=== PATIENT | female | born 1950 | race Caucasian/White ===

== ENCOUNTER 2024-12-23 11:00 | Outpatient (REF) | payer MEDICARE, SELFPAY ==
--- NOTE | ~2024-12-23 | XR_ITS ---
EXAMINATION: XR KNEE 3 VIEWS RIGHT HISTORY: M17.11 - Unilateral primary osteoarthritis, right knee COMPARISON: Correlation is made with a standing AP view of the right knee performed earlier in the day. FINDINGS: Lateral and sunrise patellar views of the right knee are submitted. Osseous mineralization is normal. There is no fracture or dislocation. There is moderate to severe narrowing of the medial compartment and mild to moderate narrowing of the patellofemoral compartment. The soft tissues are unremarkable. There is no joint effusion.. XR/XR knee RT 3V IMPRESSION: Osteoarthritis of the right knee as described. Electronically signed by: Yevgeniy Ge MD 01/03/2025 08:10 AM EDT
--- NOTE | ~2024-12-23 | XR_ITS ---
EXAMINATION: XR KNEE, LEFT CLINICAL INFORMATION: M25.562 - Pain in left knee COMPARISON: None available. TECHNIQUE: Three views of the left knee. FINDINGS: Joint space narrowing involving the medial compartments of both knees with associated sclerosis and the articular surface of the medial femoral condyle and medial tibial plateau. Marginal osteophyte formation and medial femoral condyle both kidneys. There is a suprapatellar bursa joint effusion, moderate volume on the left knee. No acute cortical disruption or malalignment. No lytic or blastic lesions. XR/XR knee LT 3V IMPRESSION: Moderate to severe medial compartment osteoarthrosis, both knees. Electronically signed by: Arie Ruiz MD 01/03/2025 07:55 AM EDT
== END 2024-12-23 11:01 | disposition home or self-care (01) ==
LOC: HO.HOSX 11:00
PROVIDERS: Visit Provider Physician Assistant
DX: M17.0 Bilateral primary osteoarthritis of knee (principal); M25.562 Pain in left knee; M25.561 Pain in right knee
CPT/HCPCS: 73562; 99202

== ENCOUNTER 2024-12-23 12:46 | Outpatient (AMB) | payer MEDICARE, SELFPAY ==
--- NOTE | 2024-12-23 12:54 | MHC.OFFVIS ---
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 Patient was seen by her PCP and had followed up with Dr Ludwig where she was receiving bilateral knee injections, last injections on 10/15/24. She was referred to [facility] to discuss surgical options. Stating injections no longer provide her with relief. Patient reports constant discomfort that gets worse with walking and stair use. She minimizes stair use due to severe pain. Her pain is located at the medial aspect of knee and she feels clicking and clanking in her knee. Her knees frequently give out, however she denies fall. States lately her left knee has been the worse. She has tried and failed knee braces. 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 She has been experiencing pain for several years, history of knee injections . They were helpful up until recently. Last inj 10/15/24 without relief. She states she is limited with daily activities. She cannot tolerate stairs. Daily chores such as grocery shopping is difficulty. She has two stairs up into the house which are difficult to manage. She has given up yoga and social activities due to her pain. [facility] Surgical History (Updated 12/23/24 @ 13:18 by Sanjana Scott PA-C) Status post ORIF of fracture of ankle Social History (Updated 12/23/24 @ 13:05 by Tran Yu [facility]) Patient Tobacco Use Status: Never used Tobacco Current occupational status: retired Review of Systems Const All systems reviewed & are unremarkable except as noted in HPI and below Physical Exam Vital Signs: BMI result Body Mass Index 30.9 Const General: cooperative and no acute distress Orientation/consciousness: patient oriented x3 Resp Effort & Inspection: normal respiratory effort and able to speak in complete sentences Cardio Peripheral pulses: Peripheral pulses 2+ throughout Neuro General: patient oriented x3 Extrem Other: Bilateral knees are normal to inspection. No joint effusion present. Medial joint line tenderness left greater than right. Range of motion fall with crepitus. Calf supple nontender neurovascularly intact. Results Reviewed Results Reviewed: X-rays of both knees obtained the office today and reviewed by me show medial compartment arthritis with patellofemoral arthritis Assessment & Plan Assessment & Plan (1) Osteoarthritis of knees, bilateral: Code(s): M17.0 - Bilateral primary osteoarthritis of knee Category: Medical Plan We had a lengthy discussion about the extent of his OA and options available which include surgical intervention. She is interested in pursuing Total knee arthroplasty to improve her functional capacity and daily activities. I explained to her the procedure in detail, the hospital stay and details about post op rehab and precautions. She does understand all this and would like to move forward. I did put her in contact with our Nurse Navigator, Demi who will set her up with pre op planning and book accordingly. All questions were answered. Orders: Orders XR knee RT 3V Today M17.11 - Unilateral primary osteoarthritis, right knee XR knee LT 3V Today M25.562 - Pain in left knee PT Evaluation and Treatment Today M17.0 - Bilateral primary osteoarthritis of knee Coding Level of Care Code New Pt Level 4 (00159) Complex EM visit Add On G2211 Diagnoses Osteoarthritis of knees, bilateral M17.0
[2024-12-23 13:10] VITALS: BMI 30.9
== END 2024-12-23 13:31 | disposition home or self-care (01) ==
LOC: HO.HOS 12:47
PROVIDERS: Visit Provider Physician Assistant
DX: M17.0 Bilateral primary osteoarthritis of knee (principal)
CPT/HCPCS: 99204; G2211

== ENCOUNTER → 2024-12-23 12:51 | Outpatient (BNV) | payer MEDICARE, SELFPAY | PROVIDERS: Visit Provider Radiology Diagnostic Radiology | DX: M17.0 Bilateral primary osteoarthritis of knee (principal) | CPT/HCPCS: 73562 ==

== ENCOUNTER 2025-01-16 09:19 | Outpatient (AMB) | payer MEDICARE, SELFPAY ==
[2025-01-16 09:22] VITALS: BMI 30.9
--- NOTE | 2025-01-16 09:22 | A.OFFVIS_ITS ---
Vital Signs 01/16/25 09:22 Height 4 ft 11 in Weight 153 lb BMI 30.9 Intake Visit Reasons: OV- LT knee Discuss TKA Intake Note: Manisha is a 74 year old female who presents today to discuss moving forward with a Left TKA. Patient was last seen with Sanjana Scott where she reported history of cortisone injections with minimal relief. Prehab Physical therapy was ordered Allergies No Known Allergies Allergy (Verified 01/16/25 09:25) HPI HPI OV- LT knee Discuss TKA: Details: This is a 74-year-old woman who comes in today to discuss bilateral knee osteoarthritis. She has had multiple injections and tried physical therapy and has been having pain for years but has gotten to the point where she can no longer walk more than 10 minutes without severe discomfort. She can barely walk up and down stairs. She has active and healthy. She has had benefit from injections but this has not been so more recently with injections being minimally helpful at best. She feels like the quality of her life is diminished. She can not workout. She can not walk comfortably. She is at her wits end does not know what to do. [facility] Surgical History Status post ORIF of fracture of ankle Social History Patient Tobacco Use Status: Never used Tobacco Current occupational status: retired Physical Exam Vital Signs: BMI result Body Mass Index 30.9 Extrem Other: 2+ dorsalis pedis pulse bilaterally with skin clean dry and intact. She has no effusion. She is 0-125 degrees bilaterally with retropatellar tenderness to palpation as well as sharp medial tenderness to palpation bilaterally. Results Reviewed Results Reviewed: I personally reviewed relevant radiographs. Moderate to severe bilateral medial and anterior compartment osteoarthritis. Assessment & Plan Assessment & Plan (1) Osteoarthritis of knees, bilateral: Code(s): M17.0 - Bilateral primary osteoarthritis of knee Category: Medical Plan 74-year-old woman with bilateral knee osteoarthritis. She has tried injections, NSAIDs, activity modification and has not had any improvement. In fact she feels her knees have gotten worse over the last several years. She is a 74 and would like to continue to be able to ambulate comfortably without pain. I recommend knee replacement. The wound discussion with her regarding risks, benefits and alternatives. We discussed the risk of infection, stiffness, blood clots, fracture, aseptic loosening as well as medical complications associated with surgery. I will introduce her to our nurse navigator and we will proceed forward accordingly. Coding Level of Care Code Est Pt Level 4 (94457) Diagnoses Osteoarthritis of knees, bilateral M17.0
== END 2025-01-16 10:00 | disposition home or self-care (01) ==
LOC: HO.HOS 09:19
PROVIDERS: Visit Provider Orthopaedic Surgery
DX: M17.0 Bilateral primary osteoarthritis of knee (principal)
CPT/HCPCS: 99214

== ENCOUNTER → 2025-01-16 09:19 | Outpatient (BNVA) | payer MEDICARE, SELFPAY | PROVIDERS: Visit Provider Orthopaedic Surgery | DX: M17.0 Bilateral primary osteoarthritis of knee (principal) | CPT/HCPCS: 99212 ==

== ENCOUNTER 2025-02-05 08:57 | Outpatient (RCR) | payer MEDICARE, SELFPAY ==
--- NOTE | 2025-01-13 12:04 | MHC.PT.EP ---
[facility] [place] Office [place] Office [place] Office [address] [phone] F: [phone] F: [phone] F: [phone] F: [phone] Physical Therapy Plan of Care Date of Evaluation: 01/13/25 Date of Surgery: Diagnosis: CHEPE OA OF KNEES-> PREHAB Lt TKA Assessment: 74 YO FEMALE REF TO PT FOR Lt TKA PRE-HAB- SHE HAS AN APPT THIS WEEK W DR REED TO SCHED SURG- SHE IS AND RESIDES IN A 1 LEVEL HOME W HER DOG. CURRENTLY, HER Lt KNEE HAS GREATER PAIN AND LIMITATION VS Rt- SHE STATED SHE HAS DECR RENETTA TO Wt BEARING/ INCR WALKING/ STAIR NAVIGATION- SHE HAS ROM AND STRENGTH DEFICITS IN HER Lt > Rt KNEE/ LE. THE Pt IS MOTIVATED FOR PT AND FOR HER POTENTIAL TKA SURGERY. WE DISCUSSED THE PT POC FOR PREHAB AND THEN Pt IS EAGER TO PROCEED. Frequency and Duration: The patient will be seen 2 x WK x 4 WKS Short Term Goals: INITIATE HEP FOR PREHAB TKA POST-OP COURSE ED AND INCR ACTIV OF QUAD AND GLUTE MM ED AND Pt DEMON APPROP TECHN W ASST DEVICES (W/WALKER, CANE..) Half-Way Goals: Pt INDEP W HEP-> IMPR QUAD MM ACTIV Pt DEMON IMPROVED, MORE EFFICIENT GAIT MECH AND STAIR NAVIGATION IMPROVED TUG, AT EVAL 13 SECONDS IMPROVED LEFI (AT EVAL 17/80) Treatment Plan: Modalities to reduce pain, spasms and effusion. Manual therapy to restore motion and function. Therapeutic exercise to improve strength and flexibility. Neuromuscular re-education for posture and balance. Therapeutic activities to return to functional activities of daily living. Electronically signed by: SY JACOBS,PT Please sign and return to therapist. Thank you for your referral.
--- NOTE | 2025-02-05 10:16 | MHC.PT.DC ---
[facility] [place] Office [place] Office [place] Office [address] Thomas Claudio [address] [phone] F: [phone] F: [phone] F: [phone] F: [phone] Physical Therapy Discharge Report Diagnosis: CHEPE OA OF KNEES-> PREHAB Lt TKA Date of Surgery: Date of Evaluation: 01/13/25 Date of Discharge: 02/05/25 Treatments to Date: 7 Cancellations to Date: 1 No Shows to Date: 0 Discharge Status: Achieved Goals Improved Function Independent with HEP Discharge Summary: NATALIE HAS PROGRESSED NICELY IN PREHAB PT, SHE IS SCHED FOR Lt TKA IN MAY 2025 AND HAS GOOD TECHN W ASST DEVICES AND PROTOCOL EXER. HER KNEE Jt PAIN HAS DECR, IMPROVED SOFT TISSUE FLEXIBILTY/ KNEE AROM , AND IMPROVED FUNCT STRENGTH. SHE IS MOTIVATED W HER HEP AND HER UPCOMING Lt TKA PROCEDURE. SHE HAS MET HER PT GOALS AT THIS TIME- HER LEFI AT D/C IS (AT EVAL, ) Electronically signed by: SY JACOBS,PT Please sign and return to therapist. Thank you for your referral.
== END 2025-02-05 10:17 | disposition home or self-care (01) ==
LOC: HO.PT 08:57
PROVIDERS: PCP Nurse Practitioner Family; Visit Provider Physician Assistant
DX: M17.0 Bilateral primary osteoarthritis of knee (principal)
CPT/HCPCS: 97110; 97162; 97530

== ENCOUNTER 2025-05-01 09:57 | Outpatient (AMB) | payer MEDICARE, SELFPAY ==
--- NOTE | 2025-04-29 21:13 | MHC.OFFVIS ---
Vital Signs 05/01/25 10:14 Height 4 ft 11 in Weight 153 lb BMI 30.9 Intake Visit Reasons: Pre-Op: L TKA w/NE 05/06/25 Intake Note: Manisha is a 74 year old female who presents today for a preoperative visit of a scheduled left TKA, DOS: 05/06/[address] Thacker. Pain management agreement reviewed and signed. Allergies No Known Allergies Allergy (Verified 05/01/25 10:14) Medication List - Last Reconciled 05/01/25 by Sanjana Scott PA-C acetaminophen ER 650 mg PO Q12H PRN atorvastatin 10 mg PO QAM fluoxetine 20 mg PO QAM [Folding Front Wheeled walker Duration: 99 days] [Folding Front Wheeled walker Duration: 99 days] levothyroxine (Synthroid) 112 mcg PO QAM lisinopril-hydrochlorothiazide 20-12.5 mg 1 tab PO QAM metformin ER 500 mg PO BID HPI Comments Details: Ms Coyle presents to the office today for Orthopedic Pre op clearance. She is scheduled for Left total knee arthroplasty with Dr Thacker on 05/06/25. She has been experiencing bilateral knee pain for several years, left being the most symptomatic. She has trialed steroid injections, her last injection being 10/15/24 without relief. She states she is limited with daily activities. She cannot tolerate stairs. Daily chores such as grocery shopping is difficult. She can hardly walk more than 10 minutes at a time. She has two stairs up into the house which are difficult to manage. She has given up yoga and social activities due to her pain. Imaging studies including bilateral knees has demonstrated severe bilat knee oa. Patient states she lives at home in a 1 level home with a few steps to enter. She states she does not have a support system at home such as family or friends who can help her once she is discharged from the hospital. Prior Medical clearances: -PCP: Past medical history of diabetes she takes metformin 500 mg twice a day. Hypertension for which she takes lisinopril-hydrochlorothiazide daily. Atorvastatin 10 mg q.h.s. for cholesterol. Due to some resting tachycardia at her preop appointment she was directed to use a Holter monitor. Based on these results there were no abnormal findings. She was advised to limit her caffeine intake. She was cleared to proceed with arthroplasty. No history of cardiopulmonary or vascular comorbidities. [facility] Medical History (Updated 04/08/25 @ 10:21 by Chica Friedman RN) Arthritis Sinus tachycardia Peripheral neuropathy Osteopenia Depression Diabetes Hypothyroid HTN (hypertension) Surgical History (Updated 04/08/25 @ 10:21 by Chica Friedman RN) Hx of tonsillectomy H/O colonoscopy Hx of appendectomy Status post ORIF of fracture of ankle Social History Are you a primary before and after school daycare worker to a significant other at home: No Do you presently have visiting nurse or other home services: No Patient Tobacco Use Status: Never used Tobacco Current occupational status: retired Review of Systems Const All systems reviewed & are unremarkable except as noted in HPI and below Physical Exam Vital Signs: BMI result Body Mass Index 30.9 Const General: cooperative, healthy appearing, comfortable, no acute distress, well developed and alert Orientation/consciousness: patient oriented x3 HEENT Head: Yes normal to inspection, Yes normocephalic and Yes atraumatic Eyes General: appearance normal, both eyes and all related structures Neck Neck: Yes normal visual inspection and Yes no lymphadenopathy Resp Effort & Inspection: normal respiratory effort and able to speak in complete sentences Cardio Rate: regular rate Peripheral pulses: Peripheral pulses 2+ throughout GI Inspection: Yes normal to inspection Palpation (GI): Soft to palpation Skin General skin exam: no rashes or lesions noted Neuro General: patient oriented x3 Extrem Other: Left knee skin intact no open wounds or abrasions. She has no erythema or effusion. ROM 0-125. TTP medially. No evidence of venous stasis . NVI. Psych Appearance: grossly normal Mental Status: mental status grossly normal Assessment & Plan Assessment & Plan (1) Osteoarthritis of left knee: Code(s): M17.12 - Unilateral primary osteoarthritis, left knee Category: Medical Plan: Ms Serra has exhausted all conservative measures consisting of lifestyle modifications, physical therapy, analgesics, corticosteroid injections and use of assisted devices and continues to have significant limitations in daily activities along with decreased quality of life. Given the patient's desire to improve their quality of life and return to activities such as yoga, surgical intervention consisting of joint replacement surgery is recommended at this time.? We discussed the procedure in detail today; which includes pre op preparation with labs and reviewing patients medication regimen prior to surgery. Patient was given an order to obtain CBC with diff, hemoglobin A1c, BMP, type and screen prior to surgery. She was instructed to go over to the hospital to have this done. Patient was also instructed to take her levothyroxine with a small sip of water the morning of surgery. She will hold her metformin and lisinopril and atorvastatin. She can also take her fluoxetine with a small sip of water morning of surgery. I discussed at length the post op course which includes physical therapy services in the hospital along with the discharge routine and the patients plan upon discharge. The patient does express interest in discharging to a short-term rehab as she lives alone and does not feel safe going home right after surgery. I explained to the patient, once they are DC home, they will receive VNA services which will include PT 2-3x per week. We also discussed their choice for outpatient PT once they are discharged from home PT. Patient would like to attend [facility] core physical therapy once she is discharged from home physical therapy services. I did place an order for this to begin after her 1st postop appointment on 05/22/2025. She was given their contact information to make an appointment. Post op DVT ppx was also discussed and the considering the patient does not have a history of DVT/PE or cancer or history of smoking she can take aspirin 325 mg p.o. b.i.d. for DVT prophylaxis postoperatively. I reviewed with the patient their post op pain medication regimen along with the detailed wean program. The patient did express understanding of this and agreed to the narcotic policy. Lastly, I discussed with the patient the risks to the procedure. Risks including but not limited to infection, injury to surrounding nerves, tissue , bone, small and large vessels, stiffness, aseptic loosening, fracture, dislocation, amputation, DVT/PE along with intraoperative complications including but not limited to . The patient does express understanding, all questions were answered and the patient would like to proceed? with Left total knee arthroplasty with Dr. Thacker. Consents were signed and dated while in the office today.? Orders: Orders Basic Metabolic Panel 05/01/25 Z01.818 - Encounter for other preprocedural examination Hemoglobin A1c 05/01/25 M17.12 - Unilateral primary osteoarthritis, left knee, Z01.818 - Encounter for other preprocedural examination Type and Screen 05/01/25 Z01.818 - Encounter for other preprocedural examination Complete Blood Count Auto Diff 05/01/25 Z01.818 - Encounter for other preprocedural examination PT Evaluation and Treatment 05/01/25 Z96.652 - Presence of left artificial knee joint Coding Level of Care Code Est Pt Level 4 (76007) Complex EM visit Add On G2211 Diagnoses Osteoarthritis of left knee M17.12
[2025-05-01 10:14] VITALS: BMI 30.9
--- OUTSIDE RECORDS SUMMARY | 2025-05-01 10:33 | XMS_ITS | Encounter Summary ---
Author Organization [facility] Address [address] [place] [id number] Phone Care Team Providers Care Block Sorter Name Role Phone Ramon Tyler MD Primary Care Provider [phone] Encounter Details Date Type Department Care Team (Late st Contact Info) Description 06/02/2020 Procedure [facility], [facility] [address] [place] [address] Social History Tobacco Use Types Packs/Day Years Used Date Smoking Tobacco: Never Assessed Comments No Sex and Gender Information Value Date Recorded Sex Assigned at Not on file Legal Sex Female 10:05 PM EDT Gender Identity Not on file Sexual Orientation Not on file documented as of this encounter Plan of Treatment Not on file documented as of this encounter Visit Diagnoses Not on filedocumented in this encounter Care Teams Block Sorter Relationship Specialty Start Date End Date Ramon Tyler MD [email or web address] PCP - General Internal Medicine 01/05/18 documented as of this encounter Additional Source Comments The information contained in this document represents components of the legal health record. It is not the complete legal health record.[facility]
== END 2025-05-01 10:53 | disposition home or self-care (01) ==
LOC: HO.HOS 09:57
PROVIDERS: Visit Provider Physician Assistant
DX: M17.12 Unilateral primary osteoarthritis, left knee (principal)
CPT/HCPCS: 99024

== ENCOUNTER → 2025-05-01 09:57 | Outpatient (BNVA) | payer MEDICARE, SELFPAY | PROVIDERS: Visit Provider Physician Assistant | DX: Z01.818 Encounter for other preprocedural examination (principal); M17.12 Unilateral primary osteoarthritis, left knee | CPT/HCPCS: 99212 ==

== ENCOUNTER 2025-05-06 06:55 | Day surgery (SDC) | payer MEDICARE, SELFPAY ==
[2025-04-08 10:28] VITALS: BP 122/81; PULSE 101; RESP 20; O2SAT 97; BMI 29.3
--- NOTE | 2025-04-08 10:43 | HO.ANESPROP2 ---
Documented by User: Radha Pink NP 05/05/25 08:47 HPI - Anesthesia Eval Consult details Narrative: 74yo F for Left Knee Replacement Total, 05/06/25 Medically optimized per PCP No recent illness No CP/SOB with very limited activity r/t knee pain DM: Metformin only, FBS 112-130, A1C 6.7 Sinus Tach: Holter done - SR @ 75-119bpm PMFSH Active Problems Active Problems: All Active Problems Osteoarthritis of left knee (Acute) Osteoarthritis of knees, bilateral (Acute) Past Medical History Medical History Arthritis Sinus tachycardia Peripheral neuropathy Osteopenia Depression Diabetes Hypothyroid HTN (hypertension) Family History Family history of problems with anesthesia: No Surgical History Surgical History Hx of tonsillectomy H/O colonoscopy Hx of appendectomy Status post ORIF of fracture of ankle History of Problems with Anesthesia: No Social History Social History Are you a primary palliative care nurse to a significant other at home: No Do you presently have visiting nurse or other home services: No Patient Tobacco Use Status: Never used Tobacco Use of substances other than those prescribed or required for medical reasons: No Have you been hit, kicked, punched, or otherwise hurt by someone within the past year? If so, by whom?: No Spiritual Healthcare Practices: no Sikh Healthcare Practices: no Cultural Healthcare Practices: no Are you DNR?: Yes Advance Directives Information Provided: Yes Advance Directives on File: No Patient : No (n/a) FDLMP: n/a Current occupational status: [employer] Allergies Allergy/AdvReac Type Severity Reaction Status Date / Time No Known Allergies Allergy Verified 05/01/25 10:14 Home Medications ?Medication ?Instructions ?Recorded ?Confirmed ?Last Taken ?Type atorvastatin 10 mg tablet 10 mg PO QAM 12/23/24 05/01/25 Unknown History fluoxetine 20 mg capsule 20 mg PO QAM 12/23/24 05/01/25 Unknown History levothyroxine 112 mcg tablet 112 mcg PO QAM 12/23/24 05/01/25 Unknown History (Synthroid) lisinopril 20 1 tab PO QAM 12/23/24 05/06/25 05/06/25 07:00 History mg-hydrochlorothiazide 12.5 mg tablet metformin 500 mg tablet,extended 500 mg PO BID 12/23/24 05/01/25 Unknown History release 24 hr acetaminophen 650 mg 650 mg PO Q12H PRN Pain 04/08/25 05/01/25 Unknown History tablet,extended release Exam Height,Weight and Vital Signs: Height 4 ft 11 in Weight 65.771 kg Last Vital Signs Pulse 101 H 04/08/25 10:28 Resp 20 04/08/25 10:28 BP 122/81 04/08/25 10:28 Pulse Ox 97 04/08/25 10:28 O2 Del Method Room Air 04/08/25 10:28 Pertinent Lab Results Pertinent Lab Results: Lab Results 04/08/25 05/01/25 05/01/25 Range/Units 10:40 10:50 10:59 WBC 9.3 (4.8-10.8) X10*3/uL RBC 4.88 (4.20-5.50) X10*6/uL Hgb 13.3 (12.0-16.0) g/dl Hct 39.6 (37.0-47.0) % MCV 81.1 (80.0-98.0) fL MCH 27.3 (27.0-33.0) pg MCHC 33.6 (31.0-35.0) g/dl RDW 13.0 (11.0-16.0) % Plt Count 377 (160-400) X10*3/uL MPV 9.7 (9.4-12.3) fL Immature Gran % (Auto) 0.8 H (0.0-0.4) % Neut % (Auto) 62.6 (45-73) % Lymph % (Auto) 23.0 (20-40) % [place] % (Auto) 10.2 (2-11) % Eos % (Auto) 2.9 (0-4) % Baso % (Auto) 0.5 (0-2) % Lymph # (Auto) 2.1 (1.2-4.9) X10*3/uL [place] # (Auto) 0.9 (0.1-1.2) X10*3/uL Eos # (Auto) 0.3 (0.0-0.4) X10*3/uL Baso # (Auto) 0.1 (0.0-0.2) X10*3/uL Abs Immat Gran (auto) 0.07 H (0.00-0.03) X10*3/uL Absolute Neuts (auto) 5.8 (2.0-8.3) x10*3/uL Absolute Nucleated RBC 0.000 (0.0-0.012) X10*3/uL Nucleated RBC % (auto) 0.0 (0.0-0.2) /100WBC Sodium 135 (135-145) mmol/L Potassium 4.0 (3.3-5.1) mmol/L Chloride 101 (96-108) mmol/L Carbon Dioxide 25 (22-29) mmol/L Anion Gap 13 (12-20) BUN 15 (9-16) mg/dL Creatinine 0.89 (0.5-1.4) mg/dL Estim Creat Clear Calc 44.3 Estimated GFR > 60 Random Glucose 232 H (60-115) mg/dL Estimat Average Glucose 134 mg/dL Hemoglobin A1c % 6.3 H (<6.0) % Calcium 9.5 (8.4-10.2) mg/dL Nasal Screen MRSA (PCR) NEGATIVE (Negative) Nasal S. aureus Screen NEGATIVE (Negative) Nasal MRSA/S.aureus Interp SEE NOTE Blood Type B Negative Antibody Screen NEGATIVE Narrative Narrative: EKG 03/2025 NSR @ 99 Holter 03/2025 SR with rates from 75-119bpm No sustained arrhythmias detected 1% PAC burden. <1% PVC burden Airway Mallampati Class: II TM Dist: >3cm Neck ROM: Full Loose/Missing/Broken Teeth: Yes (molars extracted, capped molar) Heart: RRR Lungs: CTAB Assessment and Plan Assessment Anesthesia Assessment: Anesthesia Plan Discussed and PAT Visit Final Anesthetic Review Family History of Problems with Anesthesia: No History of Problems with Anesthesia: No Documented by User: Leni Webb MD 05/06/25 09:15 [facility] Past Medical History Medical History Arthritis Sinus tachycardia Peripheral neuropathy Osteopenia Depression Diabetes Hypothyroid HTN (hypertension) Surgical History Surgical History Hx of tonsillectomy H/O colonoscopy Hx of appendectomy Status post ORIF of fracture of ankle Social History Social History Are you a primary palliative care nurse to a significant other at home: No Do you presently have visiting nurse or other home services: No Patient Tobacco Use Status: Never used Tobacco Use of substances other than those prescribed or required for medical reasons: No Have you been hit, kicked, punched, or otherwise hurt by someone within the past year? If so, by whom?: No Spiritual Healthcare Practices: no Sikh Healthcare Practices: no Cultural Healthcare Practices: no Are you DNR?: Yes Advance Directives Information Provided: Yes Advance Directives on File: No Patient : No (n/a) FDLMP: n/a Current occupational status: retired [employer] Allergies Allergy/AdvReac Type Severity Reaction Status Date / Time No Known Allergies Allergy Verified 05/01/25 10:14 Home Medications ?Medication ?Instructions ?Recorded ?Confirmed ?Last Taken ?Type atorvastatin 10 mg tablet 10 mg PO QAM 12/23/24 05/01/25 Unknown History fluoxetine 20 mg capsule 20 mg PO QAM 12/23/24 05/01/25 Unknown History levothyroxine 112 mcg tablet 112 mcg PO QAM 12/23/24 05/01/25 Unknown History (Synthroid) lisinopril 20 1 tab PO QAM 12/23/24 05/06/25 05/06/25 07:00 History mg-hydrochlorothiazide 12.5 mg tablet metformin 500 mg tablet,extended 500 mg PO BID 12/23/24 05/01/25 Unknown History release 24 hr acetaminophen 650 mg 650 mg PO Q12H PRN Pain 04/08/25 05/01/25 Unknown History tablet,extended release Assessment and Plan Final Anesthetic Review NPO: Yes ASA Class: II Final Preanesthetic Review: No Changes in Pt Med Stat, Meds/Allgs Chart Reviewed, Consent Obtained/Reviewed and Anes Risks/Benef Reviewed Patient Risk: Low Procedure Risk: Intermediate Anesthetic Plan Anesthetic Plan: Spinal, Neuraxial Block:, Regional Block and Agree w/ Assess. and Plan Disposition: Standard PACU
[2025-04-08 12:52] LABS: MRSA Nasal PCR NEGATIVE (Negative); SA Nasal PCR NEGATIVE (Negative)
[2025-05-01 11:01] LABS: MANUAL DIFF FLAG NO
[2025-05-01 11:31] LABS: Hematocrit 39.6 % (37.0-47.0); Hemoglobin 13.3 g/dl (12.0-16.0); Imm Gran Abs Auto 0.07 X10*3/uL (0.00-0.03); Imm Gran Pct Auto 0.8 % (0.0-0.4); Lymphocytes Absolute Auto 2.1 X10*3/uL (1.2-4.9); Mean Corpuscular HGB Conc 33.6 g/dl (31.0-35.0); Mean Corpuscular Hemoglobin 27.3 pg (27.0-33.0); Mean Corpuscular Volume 81.1 fL (80.0-98.0); NRBC Abs Auto 0.000 X10*3/uL (0.0-0.012); NRBC Pct Auto 0.0 /100WBC (0.0-0.2); Platelet Count 377 X10*3/uL (160-400); Red Blood Count 4.88 X10*6/uL (4.20-5.50); White Blood Count 9.3 X10*3/uL (4.8-10.8)
[2025-05-01 11:38] LABS: Hemoglobin A1C 159.5926 umol/L; Total Hemoglobin (HGBA1C) 3507.2336 umol/L
[2025-05-01 12:12] LABS: Anion Gap 13 (12-20); Blood Urea Nitrogen 15 mg/dL (9-16); Calcium 9.5 mg/dL (8.4-10.2); Carbon Dioxide 25 mmol/L (22-29); Chloride 101 mmol/L (96-108); Creatinine Clr Calc Pharmacy 44.3; Estimated Glomerular Filt Rate > 60; Potassium 4.0 mmol/L (3.3-5.1); Sodium 135 mmol/L (135-145)
[2025-05-06] VITALS (11 sets, daily range): BP systolic 95–187; BP diastolic 53–89; PULSE 70–97; RESP 12–18; TEMP 36–37.1; O2SAT 93–100; BMI 29.3
--- NOTE | ~2025-05-06 | XR_ITS ---
EXAMINATION: XR KNEE 1-2 VIEWS LEFT HISTORY: LT TKA COMPARISON: Comparison is made with the prior examination dated 12/23/2024. FINDINGS: AP and lateral portable views of the left knee are submitted from the operating room at 12:37 PM. The patient is status post total knee arthroplasty. The orthopedic elements are in anatomic alignment. Postoperative changes are noted in the soft tissues. XR/XR knee LT 2V IMPRESSION: Status post left total knee arthroplasty. Electronically signed by: Yevgeniy Ge MD 05/06/2025 12:53 PM EDT
[2025-05-06 07:54] LABS: Hematocrit 40.6 % (37.0-47.0); Hemoglobin 13.8 g/dl (12.0-16.0)
[2025-05-06] MEDS: Lactated Ringers 1,000 ML 100 ML IVCONT ×2 (08:15→14:27)
[2025-05-06 08:17] LABS: Glucose, Whole Blood 128 mg/dL (60-115)
--- NOTE | 2025-05-06 10:31 | MHC.SHP ---
Pre-Procedural Eval Section A - 24 Hr Update-Section A only Date of Service: 05/06/25 The patient is an INPATIENT: No Changes since office visit: No Cold of Flu in the past 2 weeks, No New Medical Problems, No Changes in Medication and No Patient answered all questions The patient has been examined within 24 hours of the surgical procedure. The History & Physical has been completed within 30 days and I have reviewed it.: Yes Section B - Complete if H&P > 30 days Chief Complaint: Bilateral primary osteoarthritis of knee Allergies: Allergies Allergy/AdvReac Type Severity Reaction Status Date / Time No Known Allergies Allergy Verified 05/01/25 10:14 Plan I have reviewed the history and physical and performed a pertinent physical examination on my patient. No changes have occurred unless specified. Time Spent With Patient Time: Total time managing care of this patient today ____ minutes.
--- NOTE | 2025-05-06 12:11 | PM.OP ---
Brief Operative Note Date of Service: 05/06/25 Pre-op diagnosis: left knee OA Post-op diagnosis: same Procedure: Left TKA Implants: [employer] 11/03/09PS/27s cemented PS Surgeon: Virgilio Thacker MD Anesthesia: GETA and regional Was an Software Application Tester used for this Procedure?: Yes Software Application Tester: Sanjana Scott Estimated blood loss (mL): 25 Tourniquet time (min): 70 IV fluids (mL): 800 Pathology: other Condition: stable Disposition: PACU
--- NOTE | 2025-05-06 14:20 | HO.PM.IMCN ---
History of Present Illness Data of Consult Service Date: 05/06/25 Primary Care Provider: SANGEETA Wilhelm HPI Reason for consult: Medical management 74-year-old female with a past medical history of hypertension, depression, type 2 diabetes, hypothyroidism, and hyperlipidemia, who underwent a left total knee today with Dr. Thacker. Postoperatively she is doing well, she denies any shortness of breath, dizziness, lightheadedness, nausea or vomiting. She is eating a little, has not voided yet. Was bladder scanned with no residual. She denies any pain at present. Review of Systems Review of Systems: Denies any shortness of breath, chest pain, dizziness, lightheadedness, abdominal pain or discomfort, nausea vomiting or diarrhea [facility] Medical History (Updated 05/06/25 @ 15:02 by Meliza Baumann DNP) Arthritis Sinus tachycardia Peripheral neuropathy Osteopenia Depression Diabetes Hypothyroid HTN (hypertension) Surgical History Hx of tonsillectomy H/O colonoscopy Hx of appendectomy Status post ORIF of fracture of ankle Social History Are you a primary director of critical care to a significant other at home: No Do you presently have visiting nurse or other home services: No Patient Tobacco Use Status: Never used Tobacco Use of substances other than those prescribed or required for medical reasons: No Have you been hit, kicked, punched, or otherwise hurt by someone within the past year? If so, by whom?: No Spiritual Healthcare Practices: no Zoroastrian Healthcare Practices: no Cultural Healthcare Practices: no Are you DNR?: Yes Advance Directives Information Provided: Yes Advance Directives on File: No Patient : No (n/a) FDLMP: n/a Current occupational status: retired Meds Allergies Allergy/AdvReac Type Severity Reaction Status Date / Time No Known Allergies Allergy Verified 05/01/25 10:14 Active Medications: Current Medications Acetaminophen (Acetaminophen 325 Mg Tablet) 650 mg PO Q6H PRN PRN Reason: Pain, Mild 1-3,fever,headache Aspirin (Aspirin 325 Mg Tablet) 325 mg PO BID EVELINA Celecoxib (Celecoxib 200 Mg Capsule) 200 mg PO BID EVELINA Docusate Sodium (Docusate Sodium 100 Mg Capsule) 100 mg PO BID EVELINA Fluoxetine HCl (Fluoxetine Hcl 20 Mg Capsule) 20 mg PO QAM [facility] Hydromorphone HCl (Hydromorphone Hcl 0.5 Mg/0.5 Ml Syringe) 0.25 mg IVPUSH Q4H PRN; Protocol PRN Reason: Pain, Severe (Pain Scale 7-10) Lactated Ringer's (Lr) 1,000 mls @ 100 mls/hr IVCONT .Q10H EVELINA Stop: 05/07/25 08:00 Cefazolin Sodium/Dextrose (Ancef) 2 gm in 50 mls @ 100 mls/hr IV POSTOP ONE Stop: 05/06/25 17:29 Levothyroxine Sodium (Levothyroxine Sodium 112 Mcg Tablet) 112 mcg PO QAM [facility] Ondansetron HCl (Ondansetron Hcl 4 Mg/2 Ml Vial) 4 mg IVPUSH Q8H PRN PRN Reason: Nausea and Vomiting Oxycodone HCl (Oxycodone Hcl Immed Release 5 Mg Tablet) 5 mg PO Q4H PRN PRN Reason: Pain, Moderate(Pain Scale 4-6) Oxycodone HCl (Oxycodone Hcl Er 10 Mg Tab.Er.12h) 10 mg PO BID [facility] Sodium Chloride (0.9 % Sodium Chloride Flush 3 Ml Syringe) 3 ml IVFLUSH QSHIFT [facility] Home Medications ?Medication ?Instructions ?Recorded ?Confirmed ?Last Taken ?Type atorvastatin 10 mg tablet 10 mg PO DAILY 12/23/24 05/01/25 Unknown History fluoxetine 20 mg capsule 20 mg PO DAILY 12/23/24 05/01/25 Unknown History levothyroxine 112 mcg tablet 112 mcg PO DAILY@0600 12/23/24 05/01/25 Unknown History (Synthroid) lisinopril 20 1 tab PO DAILY 12/23/24 05/01/25 05/06/25 07:00 History mg-hydrochlorothiazide 12.5 mg tablet metformin 500 mg tablet,extended 500 mg PO BID 12/23/24 05/01/25 Unknown History release 24 hr acetaminophen 650 mg 650 mg PO Q12H PRN Pain 04/08/25 05/01/25 Unknown History tablet,extended release Physical Exam Vital Signs and Narrative: Vital Signs: Last Vital Signs Temp 97.0 F 05/06/25 14:19 Pulse 76 05/06/25 14:19 Resp 14 05/06/25 14:19 BP 141/74 H 05/06/25 14:19 Pulse Ox 97 05/06/25 14:19 O2 Del Method Room Air 05/06/25 14:19 BMI result Body Mass Index 29.3 Alert and oriented X3, able to give good history. Neuro: CN II-X11 intact, no deficits, visual acuity intact EYES: PERRLA, EOM intact ENT: Hearing intact, lips moist Cardiac: S1 S2 RRR, No ectopy Pulmonary: lungs clear to auscultation, No increased WOB. Abdominal: BS active in all 4 quadrants, no guarding or tenderness MSK: Strength 5/5 upper and lower extremities : Deferred Extremities: No edema in lower extremities, PT and DP pulses palpable +2. + DP flexion. +CMS Psych: mood stable, Quiet and cooperative. Skin: Warm and dry, Intact Results Labs 05/06/25 07:49 05/01/25 10:59 Labs: Laboratory Results - last 24 hr 05/06/25 08:13 POC Glucose 128 H Imaging Radiologist's Impressions: Impressions Knee X-Ray 05/06/25 12:40 IMPRESSION: Status post left total knee arthroplasty. Electronically signed by: Yevgeniy Ge MD 05/06/2025 12:53 PM EDT RP Assessment and Plan (1) HTN (hypertension): Status: Acute (2) Diabetes: Status: Acute Plan 74-year-old female with a past medical history of depression, hypertension, type 2 diabetes, hyperlipidemia, and hypothyroidism is admitted for an elective left total knee replacement today. Left total knee replacement Plan per Orthopedics Pain well controlled no nausea vitals were stable Prophylaxis with aspirin b.i.d. Hypertension/HLD Continue hydrochlorothiazide and lisinopril Continue atorvastatin Depression Continue fluoxetine Hypothyroidism Continue levothyroxine Type 2 diabetes Continue metformin. Lispro SS while inpatient for glucose control with meals Appears well controlled, last A1c 6.3 on 05/01/2025 Thank you for allowing me to participate in the care of this patient. Signing off at this time. Please reconsult of any acute concerns or issues arise
[2025-05-06 15:24] LABS: Glucose, Whole Blood 164 mg/dL (60-115)
[2025-05-06] MEDS: oxyCODONE HCl Immed Release 5 MG TABLET PO (15:44)
--- NOTE | 2025-05-06 17:34 | PHA.MEDREC ---
Addendum entered by Trenton Mccoy [facility] 05/06/25 17:40: Med rec reviewed Original Note: Pharmacy Consult ? Medication Reconciliation Pharmacy has completed the medication reconciliation. Spoke with pt and they confirmed her medications.
[2025-05-06 17:35] LABS: Glucose, Whole Blood 289 mg/dL (60-115)
--- NOTE | 2025-05-06 17:50 | PM.DS ---
DS: Providers Provider Date of Service: 05/06/25 <Carlos Manuel-America Scott PA-C - Last Filed: 05/06/25 17:52> Date of discharge: 05/07/25 <Sanjana Scott PA-C - Last Filed: 05/06/25 17:52> Primary care physician: SANGEETA Wilhelm <Carlos ManuelStormyAmerica Baileymarta PA-C - Last Filed: 05/06/25 17:52> Consults: 05/06/25 14:09 Consult to Hospitalist Routine Comment: Consulting Provider: [facility] Reason For Exam: medical managmenet <Carlos Manuel-America Scott PA-C - Last Filed: 05/06/25 17:52> DS: Diagnosis Discharge Diagnosis (1) HTN (hypertension): Status: Acute <Ta-America Scott PA-C - Last Filed: 05/06/25 17:52> (2) Diabetes: Status: Acute <Carlos Manuel-America Scott PA-C - Last Filed: 05/06/25 17:52> (3) Status post total knee replacement, left: Status: Acute <Carlos Manuel-America Scott PA-C - Last Filed: 05/06/25 17:52> DS: Summary Hospital Course Hospital Course: The patient underwent a successful left total knee arthroplasty on, was transferred to PACU and then to the floor to recover. During their stay, their vitals were stable, afebrile at 98.2. Labs were unremarkable, H/H 11.4/34.4. POD 1 she was started on KLN095 mg tabs po bid for DVT ppx, they also received Physical Therapy services twice a day. POD1 the patient was noted to have left foot drop. SHIRLENE wrap was removed. POD2 foot drop persists and therefore, the patient was given a blue night splint. This is to be used in bed and is not meant for ambulation. Patient should be in the night splint at all times while in bed or in a chair. Physical therapy should include gait training, ROM to tolerance and quad strength. She is WBAT with a walker. Prior to discharge, his dressing was changed, incision clean dry and intact, new Aquacel dressing applied. The Aquacel dressing should remain intact and dry at all times. Any concerns with the dressing, please contact orthopedic office. No showering. The plan is to be discharged to rehab for additional physical therapy. <Sanjana Scott PA-C - Last Filed: 05/06/25 17:52> Time Attestation Discharge Coordination Time (in mins): 30 <Ary Johnson PA-C - Last Filed: 05/08/25 13:11> Quality: Safe Use of Opioids Does Pt have an Active Cancer Diagnosis on the Problem List?: No <Ary Johnson PA-C - Last Filed: 05/08/25 13:11> Quality: Stroke Does the patient have a stroke diagnosis?: No <Ary Johnson PA-C - Last Filed: 05/08/25 13:11> Physical Exam Vital Signs: Vital Signs: Last Vital Signs Temp 96.8 F 05/06/25 15:16 Pulse 88 05/06/25 15:16 Resp 14 05/06/25 15:16 BP 187/86 H 05/06/25 15:16 Pulse Ox 96 05/06/25 15:16 O2 Del Method Room Air 05/06/25 15:16 BMI result Body Mass Index 29.3 <Sanjana Scott PA-C - Last Filed: 05/06/25 17:52> Const: General: cooperative, healthy appearing and no acute distress <Ary Johnson PA-C - Last Filed: 05/08/25 13:11> Resp: Effort & Inspection: normal respiratory effort and able to speak in complete sentences <Ary Johnson PA-C - Last Filed: 05/08/25 13:11> Cardio: Rate: regular rate <Ary Johnson PA-C - Last Filed: 05/08/25 13:11> Peripheral pulses: Peripheral pulses 2+ throughout <Ary Johnson PA-C - Last Filed: 05/08/25 13:11> GI: Palpation (GI): Soft to palpation <Ary Johnson PA-C - Last Filed: 05/08/25 13:11> Skin: Lesions: no lesions <Ary Johnson PA-C - Last Filed: 05/08/25 13:11> Rashes: no rashes <Ary Johnson PA-C - Last Filed: 05/08/25 13:11> Extrem: Other: Left foot drop present. Decreased sensation dorsal aspect of the foot. Able to plantar flex. Difficulty with dorsiflexion. Able to move all digits. Pedal pulse intact. Dressing over the left knee is c/d/i. Calf is supple and nontender. <Ary Johnson PA-C - Last Filed: 05/08/25 13:11> DS: Data Data Completed and Pending Pending studies at discharge: Pending at discharge 05/06/25 11:20 Surgical [PTH] Routine <Sanjana Scott PA-C - Last Filed: 05/06/25 17:52> Labs on day of discharge: Laboratory Results - last 24 hr 05/06/25 05/06/25 05/06/25 07:49 08:13 15:21 Hgb 13.8 Hct 40.6 POC Glucose 128 H 164 H 05/06/25 17:32 Hgb Hct POC Glucose 289 H <Sanjana Scott PA-C - Last Filed: 05/06/25 17:52> Discharge Plan Discharge Patient Disposition: Xfer Inpatient Rehab Fac <Sanjana Scott PA-C - Last Filed: 05/06/25 17:52> Referrals: [facility] [Other] - 1 Week Sanjana Scott PA-C [Physician Vehicle Delivery Worker, Orthopedics] - 1 Week Referral Note: 05/22/25 14:00 [facility] Sanjana Scott PA-C <Sanjana Scott PA-C - Last Filed: 05/06/25 17:52> Discharge Medications: New celecoxib 200 mg Capsule 200 mg PO BID 30 Days Qty: 60 0RF acetaminophen 325 mg Tablet 650 mg PO Q6H PRN (Reason: Pain, Mild 1-3,Fever,Headache) 30 Days Qty: 240 0RF aspirin 325 mg Tablet 325 mg PO BID 42 Days Qty: 84 0RF docusate sodium 100 mg Capsule 100 mg PO BID 14 Days Qty: 28 0RF oxycodone 5 mg Tablet 5 mg PO Q4H PRN (Reason: Pain, Moderate(Pain Scale 4-6)) 7 Days Qty: 42 0RF Rx Instructions: Partial Fill upon patient request. Continued (DME) Folding Front Wheeled walker See Rx Instructions .ROUTE .MEDSUPPLY Qty: 1 0RF Rx Instructions: Duration: 99 days (DME) Folding Front Wheeled walker See Rx Instructions .ROUTE .MEDSUPPLY Qty: 1 0RF Rx Instructions: Duration: 99 days levothyroxine [Synthroid] 112 mcg tablet 112 mcg PO DAILY@0600 fluoxetine 20 mg capsule 20 mg PO DAILY lisinopril-hydrochlorothiazide 20-12.5 mg tablet 1 tab PO DAILY atorvastatin 10 mg tablet 10 mg PO DAILY metformin 500 mg tablet extended release 24 hr 500 mg PO BID <Sanjana Scott PA-C - Last Filed: 05/06/25 17:52> Discharge Orders: Discharge Order (Routine); Ordered 05/08/25 Ordered By: Ary Johnson <Sanjana Scott PA-C - Last Filed: 05/06/25 17:52> Diet: Regular diet <Sanjana Scott PA-C - Last Filed: 05/06/25 17:52> Regular diet <Ary Johnson PA-C - Last Filed: 05/08/25 13:11> Activity on Discharge: Use cane or walker <Sanjana Scott PA-C - Last Filed: 05/06/25 17:52> Use cane or walker <Ary Johnson PA-C - Last Filed: 05/08/25 13:11> Activity Restrictions/Additional Instructions: Physical Therapy for Total knee arthroplasty: WBAT, gait training, ROM 0-12, quad strength Limit stair climbing No showering, no tub bath-keep dressing clean, dry and intact No driving x6 weeks Continue Aspirin twice a day x 6 weeks Follow up with [facility] in 2 weeks: <Sanjana Scott PA-C - Last Filed: 05/06/25 17:52> Print Language: Turkmen <Sanjana Scott PA-C - Last Filed: 05/06/25 17:52>
[2025-05-06 19:33] LABS: Glucose, Whole Blood 231 mg/dL (60-115)
[2025-05-06] MEDS: oxyCODONE HCl ER 10 MG TAB.ER.12H PO (20:01)
[2025-05-07] VITALS (7 sets, daily range): BP systolic 134–166; BP diastolic 66–82; PULSE 84–95; RESP 16–18; TEMP 36.1–36.7; O2SAT 94–97
[2025-05-07] MEDS: Lactated Ringers 1,000 ML 100 ML IVCONT (00:17)
[2025-05-07 06:25] LABS: MANUAL DIFF FLAG NO
[2025-05-07 06:44] LABS: Hematocrit 34.8 % (37.0-47.0); Hemoglobin 11.8 g/dl (12.0-16.0); Imm Gran Abs Auto 0.10 X10*3/uL (0.00-0.03); Imm Gran Pct Auto 0.6 % (0.0-0.4); Lymphocytes Absolute Auto 1.5 X10*3/uL (1.2-4.9); Mean Corpuscular HGB Conc 33.9 g/dl (31.0-35.0); Mean Corpuscular Hemoglobin 27.2 pg (27.0-33.0); Mean Corpuscular Volume 80.2 fL (80.0-98.0); NRBC Abs Auto 0.000 X10*3/uL (0.0-0.012); NRBC Pct Auto 0.0 /100WBC (0.0-0.2); Platelet Count 312 X10*3/uL (160-400); Red Blood Count 4.34 X10*6/uL (4.20-5.50); White Blood Count 15.6 X10*3/uL (4.8-10.8)
[2025-05-07 06:46] LABS: Anion Gap 14 (12-20); Blood Urea Nitrogen 22 mg/dL (9-16); Calcium 9.2 mg/dL (8.4-10.2); Carbon Dioxide 21 mmol/L (22-29); Chloride 100 mmol/L (96-108); Creatinine Clr Calc Pharmacy 41.1; Estimated Glomerular Filt Rate 57; Potassium 4.3 mmol/L (3.3-5.1); Sodium 131 mmol/L (135-145)
[2025-05-07 07:37] LABS: Glucose, Whole Blood 120 mg/dL (60-115)
--- NOTE | 2025-05-07 07:40 | PM.PNORT ---
Subjective Subjective Date of Service: 05/07/25 Interval history: POD1 s/p LTKA Patient is resting in bed comfortably No overnight events Pain is managed No additional complaints Physical Exam Vital Signs: Vital Signs: Last Vital Signs Temp 98.1 F 05/07/25 07:38 Pulse 89 05/07/25 07:38 Resp 18 05/07/25 07:38 BP 146/82 H 05/07/25 07:38 Pulse Ox 94 05/07/25 07:38 O2 Del Method Room Air 05/07/25 07:38 BMI result Body Mass Index 29.3 Const: General: cooperative, healthy appearing and no acute distress Resp: Effort & Inspection: normal respiratory effort and able to speak in complete sentences Cardio: Rate: regular rate Peripheral pulses: Peripheral pulses 2+ throughout GI: Palpation (GI): Soft to palpation Skin: Lesions: no lesions Rashes: no rashes Extrem: Other: left knee dressing is c/d/i. Able to dorsi/plantar flex. Calf is supple and nontender. Sensation intact. Pedal pulse intact. Procedures Date of Service Date of Service: 05/07/25 Progress Note: A&P Assessment and plan (1) Status post total knee replacement, left: Status: Acute Plan Continue pain mgmnt Begin ASA for dvt ppx begin PT for LTKA - Patient does not have help at home will likely need rehab placement Dispo planning-Pending PT eval, pain mgmnt Time Spent With Patient Time: Total time managing care of this patient today ____ minutes. Quality Stroke Does the patient have a stroke diagnosis?: No VTE Prior VTE?: No VTE Risk Level:: Medical - moderate - high VTE Device Contraindication: N/A - Device Ordered VTE Drug Contraindication: N/A - Med Ordered
--- NOTE | 2025-05-07 08:36 | HO.POSTANES ---
Post Anesthesia Evaluation Post Anesthesia Evaluation Date of Service: 05/07/25 Vital Signs: Vital Signs Temp Pulse Resp BP Pulse Ox O2 Del Method 05/07/25 07:38 98.1 F 89 18 146/82 H 94 Room Air 05/07/25 03:15 97.0 F 95 18 134/78 94 Room Air 05/06/25 23:34 97.6 F 97 18 137/73 94 Room Air Anesthesia: Spinal Mental Status: Awake Pain Control: Satisfactory Nausea/Vomiting: None Hydration: Adequate Anesthesia-Related Issues: No Anes. Related Issues
[2025-05-07] MEDS: oxyCODONE HCl ER 10 MG TAB.ER.12H PO ×2 (08:37→21:28)
[2025-05-07] MEDS: oxyCODONE HCl Immed Release 5 MG TABLET PO ×2 (08:38→12:35)
--- NOTE | 2025-05-07 10:42 | MHC.CM.PN ---
pt lives alone is extended stay will not have a qhs referrals to acute s and a vna dc plan tbd
[2025-05-07 11:28] LABS: Glucose, Whole Blood 158 mg/dL (60-115)
--- NOTE | 2025-05-07 13:22 | W.PM.OPN ---
Operative Note Operative Note Date of Service: 05/07/25 Narrative: Date of Service: 05/06/25 Pre-op diagnosis: left knee OA Post-op diagnosis: same Procedure: Left TKA Implants: Lenorah Triathlon 2/2/10PS/27s cemented PS Surgeon: Virgilio Thacker MD Anesthesia: GETA and regional Was an Senior Architectural Designer used for this Procedure?: Yes Senior Architectural Designer: Sanjana Scott Estimated blood loss (mL): 25 Tourniquet time (min): 70 IV fluids (mL): 800 Pathology: other Condition: stable Disposition: PACU Procedure in detail: The patient was brought to the operating room and prepped and draped in standard sterile fashion. A time-out was called to identify proper site proper procedure proper surgeon and IV antibiotics were administered. 1 g of IV tranexamic acid was administered. I began by making a midline incision to the retinaculum and performed a medial parapatellar arthrotomy. The patella was translated laterally and the knee was flexed up. The medial compartment was eburnated as was the trochlea. I performed a small medial peel and resected the infrapatellar fat pad. Gregg's line was then used to drill my intramedullary femoral guide and my distal femur cut of 10mm was made in 5 degrees of valgus while protecting the posterior soft tissues. I then measured a #2 femur and placed my cutting guide and made my anterior posterior and chamfer cuts protecting the soft tissues at all times. I then made my box but removing the PCL. Once I was satisfied with my cuts I turned my attention to the tibia. I removed the meniscus medially and laterally and , using an external cutting guide, in line with the tibial crest and the third ray, I made my distal tibial cut in 0 deg slope of while protecting the posterior soft tissues at all times. An extension block was used to confirm appropriate amount of bony resection. I then sized a #2 tibia and once I was satisfied that there was complete tibial coverage I placed my trial and with the trial femur in place took the knee through range of motion. I was satisfied with the extension and flexion as well as the balance at 0, 30 and 90 degrees. I then turned my attention to the patella where I removed 1 cm from the undersurface of the patella and then trialed a 27s patellar button. Again the knee was taken through range of motion I was satisfied with the tracking. I then prepared the tibia with a drill and punch. A femoral bone plug was placed and the knee was irrigated copiously. Two bags of bone cement mixed on the back table using 3rd generation cementation technique. I then cemented the patella, tibia and femur in standard fashion. Axial compression and a clamp were used while the cement dried. Once the cement was hard on the back table all excess cement was removed and I trialed different inserts until I selected a #10ps insert. The final insert was placed and local TXA was administered. The knee was then closed with a running Quill suture, a 3 0 Vicryl and liliana on the skin. Patient was then placed in sterile dressing and brought to recovery room in stable condition there were no known complications.
--- NOTE | 2025-05-07 13:49 | MHC.CM.PN ---
pt to be dcd tomorrow to [facility]
[2025-05-07 16:10] LABS: Glucose, Whole Blood 118 mg/dL (60-115)
[2025-05-07] MEDS: 0.9 % Sodium Chloride Flush 3 ML SYRINGE IVFLUSH (16:38)
[2025-05-07 20:09] LABS: Glucose, Whole Blood 129 mg/dL (60-115)
[2025-05-08 04:00] VITALS: BP 137/71; PULSE 98; RESP 16; TEMP 36.1; O2SAT 93
[2025-05-08 06:53] LABS: MANUAL DIFF FLAG NO
[2025-05-08 07:06] LABS: Hematocrit 34.4 % (37.0-47.0); Hemoglobin 11.4 g/dl (12.0-16.0); Imm Gran Abs Auto 0.08 X10*3/uL (0.00-0.03); Imm Gran Pct Auto 0.7 % (0.0-0.4); Lymphocytes Absolute Auto 2.6 X10*3/uL (1.2-4.9); Mean Corpuscular HGB Conc 33.1 g/dl (31.0-35.0); Mean Corpuscular Hemoglobin 27.1 pg (27.0-33.0); Mean Corpuscular Volume 81.7 fL (80.0-98.0); NRBC Abs Auto 0.000 X10*3/uL (0.0-0.012); NRBC Pct Auto 0.0 /100WBC (0.0-0.2); Platelet Count 298 X10*3/uL (160-400); Red Blood Count 4.21 X10*6/uL (4.20-5.50); White Blood Count 11.1 X10*3/uL (4.8-10.8)
[2025-05-08 07:22] LABS: Anion Gap 13 (12-20); Blood Urea Nitrogen 16 mg/dL (9-16); Calcium 8.9 mg/dL (8.4-10.2); Carbon Dioxide 28 mmol/L (22-29); Chloride 96 mmol/L (96-108); Creatinine Clr Calc Pharmacy 49.3; Estimated Glomerular Filt Rate > 60; Potassium 4.5 mmol/L (3.3-5.1); Sodium 132 mmol/L (135-145)
[2025-05-08 07:24] LABS: Glucose, Whole Blood 119 mg/dL (60-115)
[2025-05-08 07:38] VITALS: BP 112/58; PULSE 90; RESP 17; TEMP 36.1; O2SAT 94
--- NOTE | 2025-05-08 08:38 | PM.PNORT ---
Subjective Subjective Date of Service: 05/08/25 Interval history: POD2 s/p LTKA Patient is resting in bed comfortably Continues to report inability to flex at the ankle and decreased sensation No overnight events Pain is managed No additional complaints Physical Exam Vital Signs: Vital Signs: Last Vital Signs Temp 96.9 F 05/08/25 07:38 Pulse 90 05/08/25 07:38 Resp 17 05/08/25 07:38 BP 112/58 L 05/08/25 07:38 Pulse Ox 94 05/08/25 07:38 O2 Del Method Room Air 05/08/25 07:38 BMI result Body Mass Index 29.3 Const: General: cooperative, healthy appearing and no acute distress Resp: Effort & Inspection: normal respiratory effort and able to speak in complete sentences Cardio: Rate: regular rate Peripheral pulses: Peripheral pulses 2+ throughout GI: Palpation (GI): Soft to palpation Skin: Lesions: no lesions Rashes: no rashes Extrem: Other: Left foot drop present. Decreased sensation dorsal aspect of the foot. Able to plantar flex. Difficulty with dorsiflexion. Able to move all digits. Pedal pulse intact. Dressing over the left knee is c/d/i. Calf is supple and nontender. Procedures Date of Service Date of Service: 05/08/25 Progress Note: A&P Assessment and plan (1) Status post total knee replacement, left: Status: Acute Plan Continue pain mgmnt Monitor left foot drop - Blue night splint provided to the patient to keep foot in dorsiflexion at neutral - Cannot WB on this boot Continue ASA for dvt ppx Continue PT for LTKA - Patient does not have help at home will likely need rehab placement Dispo planning- PT, pain mgmnt, monitor foot drop, blue night splint on while in bed, patient will continue to need orthopedic monitoring and is not ready for discharge at this time. Time Spent With Patient Time: Total time managing care of this patient today ____ minutes. Quality Stroke Does the patient have a stroke diagnosis?: No VTE Prior VTE?: No VTE Risk Level:: Medical - moderate - high VTE Device Contraindication: N/A - Device Ordered VTE Drug Contraindication: N/A - Med Ordered
[2025-05-08] MEDS: oxyCODONE HCl ER 10 MG TAB.ER.12H PO (08:45)
[2025-05-08] MEDS: 0.9 % Sodium Chloride Flush 3 ML SYRINGE IVFLUSH (08:47)
[2025-05-08 11:04] LABS: Glucose, Whole Blood 149 mg/dL (60-115)
[2025-05-08 11:45] VITALS: BP 130/63; PULSE 95; RESP 12; TEMP 36.8; O2SAT 93
--- NOTE | 2025-05-08 12:47 | MHC.CM.PN ---
PT TO DC TO [facility] TODAY AT 1400 HOURS VIA [facility]
== END 2025-05-08 14:11 ==
LOC: HO.SSS 06:56 → HO.S3 13:32
PROVIDERS: Physician Assistant; PCP Nurse Practitioner Family; Visit Provider Orthopaedic Surgery
PROC: (CPT 27447; principal; 2025-05-06 10:20)
DX: M17.12 Unilateral primary osteoarthritis, left knee (principal); M25.562 Pain in left knee; R26.2 Difficulty in walking, not elsewhere classified; R00.0 Tachycardia, unspecified; I10 Essential (primary) hypertension; E78.00 Pure hypercholesterolemia, unspecified; G62.9 Polyneuropathy, unspecified; M85.80 Other specified disorders of bone density and structure, unspecified site; E03.9 Hypothyroidism, unspecified; F32.A Depression, unspecified; E11.9 Type 2 diabetes mellitus without complications; Z79.84 Long term (current) use of oral hypoglycemic drugs; Z79.899 Other long term (current) drug therapy; Z98.890 Other specified postprocedural states
CPT/HCPCS: 27447; 36415; 73560; 80048; 82947; 83036; 85014; 85018; 85025; 86850; 86900; 86901; 87640; 87641; 88305; 88311; 97110; 97116; 97162; 97165; 97530; 97535; C1713; C1776; J0131; J0665; J0690; J1100; J1885; J2004; J2250; J2371; J2405; J2704; J7120

== ENCOUNTER → 2025-05-06 06:55 | Outpatient (BNV) | payer MEDICARE, SELFPAY | PROVIDERS: PCP Nurse Practitioner Family; Visit Provider Orthopaedic Surgery | DX: M17.12 Unilateral primary osteoarthritis, left knee (principal) | CPT/HCPCS: 27447; 99024 ==

== ENCOUNTER → 2025-05-06 06:55 | Outpatient (BNV) | payer MEDICARE, SELFPAY | PROVIDERS: PCP Nurse Practitioner Family; Visit Provider Nurse Practitioner Family | DX: I10 Essential (primary) hypertension (principal); E11.9 Type 2 diabetes mellitus without complications | CPT/HCPCS: 99221 ==

== ENCOUNTER → 2025-05-06 12:24 | Outpatient (BNV) | payer MEDICARE, SELFPAY | PROVIDERS: PCP Nurse Practitioner Family; Visit Provider Radiology Diagnostic Radiology | DX: M25.562 Pain in left knee (principal); Z96.652 Presence of left artificial knee joint | CPT/HCPCS: 73560 ==

== ENCOUNTER 2025-05-22 13:50 | Outpatient (AMB) | payer MEDICARE, SELFPAY ==
--- OUTSIDE RECORDS SUMMARY | 2025-05-22 13:59 | XMS_ITS | Encounter Summary ---
Author Organization [facility] Address [address] [facility] [address] [place] [address] Phone Care Team Providers Care Managing Partner Name Role Phone Ramon Tyler MD Primary Care Provider [phone] Encounter Details Date Type Department Care Team (Late st Contact Info) Description 06/02/2020 Procedure Pass [facility], [address] [address] Social History Tobacco Use Types Packs/Day Years [...] on filedocumented in this encounter Care Teams Managing Partner Relationship Specialty Start Date End Date Ramon Tyler MD [email or web address] PCP - General Internal Medicine 01/05/18 documented as of this encounter Additional Source Comments The information contained in this document represents components of the legal health record. It is not the complete legal health record.[facility]
--- NOTE | 2025-05-22 14:05 | A.OFFVIS_ITS ---
Intake Visit Reasons: 2WKPO: L TKA w/NE 05/06/25 Intake Note: Manisha is a 74 year old female who presents today post operatively after undergoing a left total knee arthroplasty, DOS 05/06/[address] Thacker. Patient reports she is doing well, her most discomfort comes at night. Allergies No Known Allergies Allergy (Verified 05/22/25 14:15) Medication List - Last Reconciled 05/22/25 by Sanjana Scott PA-C acetaminophen 650 mg (2 x 325 mg) PO Q6H PRN 30 days aspirin 325 mg PO BID 42 days atorvastatin 10 mg PO DAILY celecoxib 200 mg PO BID 30 days docusate sodium 100 mg PO BID 14 days fluoxetine 20 mg PO DAILY [Folding Front Wheeled walker Duration: 99 days] [Folding Front Wheeled walker Duration: 99 days] levothyroxine (Synthroid) 112 mcg PO DAILY@0600 lisinopril-hydrochlorothiazide 20-12.5 mg 1 tab PO DAILY metformin ER 500 mg PO BID oxycodone 5 mg PO Q4H PRN 7 days HPI HPI 2WKPO: L TKA w/NE 05/06/25: Details: 74-year-old female returns to the office today 2 weeks status post left total knee arthroplasty with Dr. Thacker on 05/06/2025. The patient is home from rehab facility and is transitioning to outpatient physical therapy tomorrow. She is ambulating with a walker and she was given an AFO brace while in rehab. She was working with the therapist in rehab to try and regain control of the peroneal nerve. Patient feels she has some improved sensation and mobility but it has not fully recovered. [facility] Medical History (Updated 05/22/25 @ 16:52 by Sanjana Scott PA-C) Arthritis Sinus tachycardia Peripheral neuropathy Osteopenia Depression Diabetes Hypothyroid HTN (hypertension) Surgical History Hx of tonsillectomy H/O colonoscopy Hx of appendectomy Status post ORIF of fracture of ankle Social History Household Members: None Housing: House Are you a primary college and career counselor to a significant other at home: No Do you presently have visiting nurse or other home services: No Comment: pt A&Ox4, uses call lopez appropriately Patient Tobacco Use Status: Never used Tobacco service: No Current occupational status: retired Review of Systems Const All systems reviewed & are unremarkable except as noted in HPI and below Physical Exam Extrem Other: Left knee incision is clean dry and intact no drainage or erythema. No effusion. Range of motion 0-100 degrees. Calf is supple and nontender. She is able to plantar flex but unable to dorsiflex. No firing of the EHL. She can activate inversion eversion. Sensation intact to light touch. Pulses present. Assessment & Plan Assessment & Plan (1) Status post total knee replacement, left: Code(s): Z96.652 - Presence of left artificial knee joint Category: Medical Plan: Left knee is doing very well. She still has a foot drop. She feels her sensation is improved from prior and feels stronger but still unable to dorsiflex. She is wearing an AFO. We discussed the potential for full recovery vs partial recovery vs no recovery and will continue to monitor. She should continue PT and f/u in 4 weeks. She also understands working with physical therapy and remaining active we will help to aid in her recovery. Abdias were removed today and Steri- Strips were applied. The patient will continue with physical therapy to work on gait training, range of motion and strengthening exercises. She will avoid driving for the next 4 weeks. Continue aspirin 325 mg p.o. b.i.d. for another 4 weeks to reduce risk of blood clots. She will see us back in [address] Thacker, sooner if needed. Coding Level of Care Code Global (80211) Diagnoses Status post total knee replacement, left Z96.652
== END 2025-05-22 15:11 | disposition home or self-care (01) ==
LOC: HO.HOS 13:51
PROVIDERS: Visit Provider Physician Assistant
DX: Z96.652 Presence of left artificial knee joint (principal)
CPT/HCPCS: 99024

== ENCOUNTER → 2025-05-22 13:50 | Outpatient (BNVA) | payer MEDICARE, SELFPAY | PROVIDERS: Visit Provider Physician Assistant | DX: Z47.89 Encounter for other orthopedic aftercare (principal); Z96.652 Presence of left artificial knee joint; Z79.82 Long term (current) use of aspirin | CPT/HCPCS: 99212 ==

== ENCOUNTER 2025-06-12 13:28 | Outpatient (AMB) | payer MEDICARE, SELFPAY ==
--- NOTE | 2025-06-12 13:35 | MHC.OFFVIS ---
Vital Signs 06/12/25 13:36 Height 4 ft 11.5 in Weight 150 lb BMI 29.8 Intake Visit Reasons: 2nd PO: L TKA w/NE 05/06/25 Intake Note: Manisha is a 74 year old female who presents today for a post operative appointment about 5 weeks s/p Left TKA 05/06/25. At her last visit with Sanjana it was noted that the patient continues to have foot drop -sensation is improving but still unable to dorsiflex - she is using an AFO. Started outpatient PT with [facility] on 05/26/25. Patient reports that the knee is feeling sore, she continues to have pain particularly at night as her pain is interrupting her sleep. There are no improvements in her foot drop or inability to dorsiflex although she is working on this with physical therapy. Allergies No Known Allergies Allergy (Verified 05/22/25 14:15) HPI HPI 2nd PO: L TKA w/NE 05/06/25: Details: Six weeks status post left knee replacement. Her knee is doing well. She continues to have a footdrop. PFSH Medical History Arthritis Sinus tachycardia Peripheral neuropathy Osteopenia Depression Diabetes Hypothyroid HTN (hypertension) Surgical History Hx of tonsillectomy H/O colonoscopy Hx of appendectomy Status post ORIF of fracture of ankle Social History Household Members: None Housing: House Are you a primary medical care evaluation specialist to a significant other at home: No Do you presently have visiting nurse or other home services: No Comment: pt A&Ox4, uses call lopez appropriately Patient Tobacco Use Status: Never used Tobacco service: No Current occupational status: retired Physical Exam Vital Signs: BMI result Body Mass Index 29.8 Extrem Other: Incision clean dry and intact. 0-130 degrees of motion. Stable to varus and valgus stress. Plantar flexion intact. No dorsiflexion. Assessment & Plan Assessment & Plan (1) Status post total knee replacement, left: Code(s): Z96.652 - Presence of left artificial knee joint Category: Surgical Plan: Status post left total knee replacement. Knee is progressing well. Continue strengthening and range of motion. (2) Foot drop, left: Code(s): M21.372 - Foot drop, left foot Category: Medical Plan: Continues with left footdrop. She has a dorsiflexion splint. Follow up 6 weeks. Coding Level of Care Code Global (89348) Diagnoses Status post total knee replacement, left Z96.652 Foot drop, left M21.372
[2025-06-12 13:36] VITALS: BMI 29.8
--- OUTSIDE RECORDS SUMMARY | 2025-06-12 17:25 | XMS_ITS | Encounter Summary ---
Author Organization [facility] Address [address] [place] [address] Phone Care Team Providers Care Dicer Machine Operator Name Role Phone Ramon Tyler MD Primary Care Provider [phone] Encounter Details Date Type Department Care Team (Late st Contact Info) Description 06/02/2020 Procedure Pass [facility], [address] [address] Social History Tobacco Use Types Packs/Day Years Used Date Smoking Tobacco: Never Assessed Comments No Sex and Gender Information Value Date Recorded Sex Assigned at Not on file Legal Sex Female 10:05 PM EDT Gender Identity Not on file Sexual Orientation Not on file documented as of this encounter Plan of Treatment Upcoming Encounters Date Type Department Care Team (Late st Contact Info) Description 09/04/2025 Procedure Pass [facility] Admitting Dept Virtual Department [address] [place] [address] 09/04/2025 9:00 AM EST Hospital Encounter [facility] Virtual Department [address] [place] [phone] Ramon Feliz MD [address] [place] [address] 09/04/2025 9:00 AM EST - 09/04/2025 9:30 AM EST Surgery [facility] Admitting Dept Virtual Department [address] [place] [address] Ramon Feliz MD [address] [place] [address] [email or web address] COLONOSCOPY Scheduled Procedures Name Priority Associated Diagnoses Date/Ti ny COLONOSCOPY Screening for colon cancer 09/04/2025 9:00 AM EST documented as of this encounter Visit Diagnoses Not on filedocumented in this encounter Care Teams Dicer Machine Operator Relationship Specialty Start Date End Date Ramon Tyler MD [email or web address] PCP - General Internal Medicine 01/05/18 documented as of this encounter Additional Source Comments The information contained in this document represents components of the legal health record. It is not the complete legal health record.[facility]
--- OUTSIDE RECORDS SUMMARY | 2025-06-12 17:25 | XMS_ITS | Encounter Summary ---
Author Organization [facility] Address [address] [facility] [address] [place] [address] Phone Care Team Providers Care Evp Strategy Name Role Phone Ramon Tyler MD Primary Care Provider [phone] Encounter Details Date Type Department Care Team (Latest Contact Info) Description 05/30/2025 Transcribe Orders Virtual Department [address] [place] [address] Laura Velazquez NP [address] [place] [address] Asymptomatic menopausal state (Primary Dx) Social History Tobacco Use Types Packs/Day Years Used Date Smoking Tobacco: Never Assessed Education Answer Date Recorded Are you interested in more education? Not on tolu e 01/27/2023 Are you concerned about learning? Not on file 01/27/2023 No 01/27/2023 No 01/27/2023 Digital Access Answer Date Recorded No 02/27/2023 No 02/27/2023 Reliable internet access at home? Not on file 02/27/2023 Device with a working camera? Not on file Comments No Sex and Gender Information Value Date Recorded Sex Assigned at Not on file Legal Sex Female 10:05 PM EDT Gender Identity Not on file Sexual Orientation Not on file documented as of this encounter Plan of Treatment Upcoming Encounters Date Type Department Care Team (Late st Contact Info) Description 09/04/2025 Procedure Pass [facility] Admitting [facility] Virtual Department [address] [place] [address] 09/04/2025 9:00 AM EST Hospital Encounter [facility] Virtual Department [address] [place] [address] Ramon Feliz MD [address] [address] 09/04/2025 9:00 AM EST - 09/04/2025 9:30 AM EST Surgery [facility] Admitting [facility] Virtual Department [address] [place] [address] Ramon Feliz MD [address] [address] [email or web address] COLONOSCOPY Scheduled Orders Name Type Priority Associated Diagnoses Orde r Schedule DXA Screening Imaging Routine Asymptomatic menopausal state Expected: 06/29/2025, Expires: 05/30/2026 Scheduled Procedures Name Priority Associated Diagnoses Date/Ti me COLONOSCOPY Screening for colon cancer 09/04/2025 9:00 AM EST documented as of this encounter Visit Diagnoses Diagnosis Asymptomatic menopausal state- Primary Screening for colon cancer Special screening for malignant neoplasms, colon documented in this encounter Care Teams Evp Strategy Relationship Specialty Start Date End Date Ramon Tyler MD [email or web address] PCP - General Internal Medicine 01/05/18 documented as of this encounter Additional Source Comments The information contained in this document represents components of the legal health record. It is not the complete legal health record.[facility]
--- OUTSIDE RECORDS SUMMARY | 2025-06-12 17:25 | XMS_ITS | Clinical Summary ---
Author Organization [facility] Address [address] [facility] [address] [place] [address] Phone Care Team Providers Care Electrical And Instrumentation Mechanic Name Role Phone Ramon Tyler MD Primary Care Provider [phone] Encounters Date Type Department Care Team Description 05/30/2025 Transcribe Orders Virtual Department [address] [place] [address] Laura Velazquez NP Asymptomatic menopausal state (Primary Dx) from Last 3 Months Family History Medical History Relation Comments Breast cancer Maternal Grandmother Relation Status Comments Maternal Grandmother Social History Tobacco Use Types Packs/Day Years [...] on file Sexual Orientation Not on file Last Filed Vital Signs Vital Sign Reading Time Taken Comments Blood Pressure 128/70 11/08/2012 3:38 AM EST Pulse - - Temperature - - Respiratory Rate - - Oxygen Saturation - - Inhaled Oxygen Concentration - - Weight 73.7 kg (162 lb 6.4 oz) 11/08/2012 3:38 A M EST Height 149.9 cm (4' 11 ) 11/08/2012 3:38 AM EST Body Mass Index 32.8 11/08/2012 3:38 AM EST Plan of Treatment Upcoming Encounters Date Type Department Care Team (Late st Contact Info) Description 09/04/2025 Procedure Pass [facility] Admitting [facility] Virtual Department [address] [place] [address] 09/04/2025 9:00 AM EST Hospital Encounter [facility] Virtual Department [address] [place] [address] Ramon Feliz MD [address] [address] 09/04/2025 9:00 AM EST - 09/04/2025 9:30 AM EST Surgery [facility] Admitting [facility] Virtual Department [address] [place] [address] Ramon Feliz MD [address] [address] [email or web address] COLONOSCOPY Scheduled Procedures Name Priority Associated Diagnoses Date/Ti az COLONOSCOPY Screening for colon cancer 09/04/2025 9:00 AM EST Medical Devices Not on file Insurance [place] [id number] [employer] MED[employer] SUPPLEMENT MEDICARE PART A & B [employer] MED[employer] SUPPLEMENT MEDICARE PART A & B [employer] MEDEX SUPPLEMENT MEDICARE PART A & B [facility] MEDEX SUPPLEMENT MEDICARE PART A & B [employer] MEDEX SUPPLEMENT MEDICARE PART A & B Member Subscriber Plan / Payer ( fective 2013-Present) Name:Manisha Serra Member ID:[id number] Relation to Subscriber:Self Name:Manisha Serra Subscriber ID:[id number] Payer ID:[id number] Group ID:Not on file Type:Medicare Address: [facility] [address] [place] [phone] [employer] MEDEX SUPPLEMENT MEDICARE PART A & B Member Subscriber Plan / Payer ( fective 2013-Present) Name:Manisha Serra Member ID:[id number] Relation to Subscriber:Self Name:Manisha Serra Subscriber ID:[id number] Payer ID:[id number] Group ID:Not on file Type:Medicare Address: [facility] [address] [place] [phone] [employer] MEDEX SUPPLEMENT MEDICARE PART A & B Member Subscriber Plan / Payer ( fective 2013-Present) Name:Manisha Serra Member ID:[id number] Relation to Subscriber:Self Name:Manisha Serra Subscriber ID:[id number] Payer ID:[id number] Group ID:Not on file Type:Medicare Address: [facility] [address] [place] [phone] [employer] MEDEX SUPPLEMENT MEDICARE PART A & B [employer] MEDEX SUPPLEMENT Care Teams Electrical And Instrumentation Mechanic Relationship Specialty Start Date End Date Ramon Tyler MD [email or web address] PCP - General Internal Medicine 01/05/18 Additional Source Comments The information contained in this document represents components of the legal health record. It is not the complete legal health record.[facility]
--- OUTSIDE RECORDS SUMMARY | 2025-06-12 17:25 | XMS_ITS | Encounter Summary ---
Author Organization [facility] Address [address] [place] [address] Phone Care Team Providers Care Sponge Diver Name Role Phone Kadeem Tyler MD Primary Care Provider [phone] Encounter Details Date Type Department Care Team (Late Contact Info) Description 01/05/2018 Ancillary Orders Virtual Department [address] [place] [address] Klarissa Mcbride MD [address] [place], [place] Breast screening Social History Tobacco Use Types Packs/Day Years Used Date Smoking Tobacco: Never Assessed Comments Unknown Sex and Gender Information Value Date Recorded Sex Assigned at Not on file Legal Sex Female 10:05 PM EDT Gender Identity Not on file Sexual Orientation Not on file documented as of this encounter Plan of Treatment Upcoming Encounters Date Type Department Care Team (Late st Contact Info) Description 09/04/2025 Procedure Pass [facility] Admitting Dept Virtual Department [address] [place] [address] 09/04/2025 9:00 AM EST Hospital Encounter [facility] Admitting [facility] Virtual Department [address] [place] [address] Kadeem Feliz MD [address] [place] [address] 09/04/2025 9:00 AM EST - 09/04/2025 9:30 AM EST Surgery [facility] Admitting Dept Virtual Department [address] [place] [address] Kadeem Feliz MD [address] [place] [address] [email or web address] Scheduled Procedures Name Priority Associated Diagnoses Date/Ti ar COLONOSCOPY Screening for colon cancer 09/04/2025 9:00 AM EST documented as of this encounter Results * BI MAMMOGRAM SCREENING WITH TOMOSYNTHESIS WITH CAD (BILATERAL) (02/15/2018 8:31 AM EDT) Anatomical Region Laterality Modality Breast Left, Breast Right, Breast Bilateral Bila teral Mammography 02/15/2018 8:47 AM EDT Impressions 02/15/2018 8:49 AM EDT No mammographic evidence of malignancy. Routine annual versus biannual screening mammography recommended. BI-RADS CATEGORY: 2 - Benign finding. DENSITY: The breast tissue is almost entirely fat. POS - [id number] Narrative 02/15/2018 8:49 AM EDT Standard digital full-field 2-D C view and two-plane tomographic imaging was performed and compared with multiple prior studies, most recently 12/10/2014, with utilization of computer-aided detection. The breasts are almost entirely fatty. The stromal markings are essentially unchanged in overall appearance and distribution. No dominant spiculated mass, suspicious clustered microcalcifications, or focal zone of pathologic skin thickening or retraction are noted to have arisen in the interim. Scattered punctate and coarse benign-appearing microcalcifications and macrocalcifications are present bilaterally. Procedure Note Kadeem Connell MD - 02/15/2018 Standard digital full-field 2-D C view and two-plane tomographic imagingwas performed and compared with multiple prior studies, most [id number]/11/2015, with utilization of computer-aided detection. The breasts are almost entirely fatty. The stromal markings areessentially unchanged in overall appearance and distribution. No dominantspiculated mass, suspicious clustered microcalcifications, or focal zoneof pathologic skin thickening or retraction are noted to have arisen inthe interim. Scattered punctate and coarse benign-appearingmicrocalcifications and macrocalcifications are present bilaterally. IMPRESSION: No mammographic evidence of malignancy. Routine annual versus biannualscreening mammography recommended. BI-RADS CATEGORY: 2 - Benign finding. DENSITY: The breast tissue is almost entirely fat. POS - [id number] Klarissa Mcbride MD IMG MG EXAMS Joanne l Result documented in this encounter Visit Diagnoses Diagnosis Breast screening Breast screening, unspecified Breast screening Breast screening, unspecified Screening for colon cancer Special screening for malignant neoplasms, colon documented in this encounter Care Teams Sponge Diver Relationship Specialty Start Date End Date Kadeem Tyler MD [email or web address] PCP - General Internal Medicine 01/05/18 documented as of this encounter Additional Source Comments The information contained in this document represents components of the legal health record. It is not the complete legal health record.[facility]
== END 2025-06-12 14:13 | disposition home or self-care (01) ==
LOC: HO.HOS 13:29
PROVIDERS: Visit Provider Orthopaedic Surgery
DX: Z96.652 Presence of left artificial knee joint (principal); M21.372 Foot drop, left foot
CPT/HCPCS: 99024

== ENCOUNTER → 2025-06-12 13:28 | Outpatient (BNVA) | payer MEDICARE, SELFPAY | PROVIDERS: Visit Provider Orthopaedic Surgery | DX: M21.372 Foot drop, left foot (principal); Z96.652 Presence of left artificial knee joint | CPT/HCPCS: 99212 ==

== ENCOUNTER 2025-07-24 12:55 | Outpatient (REF) | payer MEDICARE, SELFPAY ==
--- NOTE | ~2025-07-24 | XR_ITS ---
EXAMINATION: XR KNEE, LEFT CLINICAL INFORMATION: M25.562 - Pain in left knee COMPARISON: Previous x-ray May 2025 TECHNIQUE: AP standing view of both knees and lateral and sunrise view of the left knee. FINDINGS: Left knee replacement in satisfactory position. No fracture, dislocation or x-ray evidence of loosening. No significant joint effusion. Soft tissues are unremarkable. Standing AP view of the right knee demonstrates degenerative changes at the medial femoral tibial joint with joint space narrowing and osteophyte formation. There is faint soft tissue calcification adjacent to the medial tibial plateau. XR/XR knee LT 3V IMPRESSION: Satisfactory appearance of left knee replacement. Electronically signed by: Suyapa Andrews MD 07/24/2025 01:22 PM EDT
== END 2025-07-24 12:56 | disposition home or self-care (01) ==
LOC: HO.HOSX 12:55
PROVIDERS: Visit Provider Orthopaedic Surgery
DX: M17.0 Bilateral primary osteoarthritis of knee (principal); M21.372 Foot drop, left foot
CPT/HCPCS: 20610; 73562; J7318

== ENCOUNTER 2025-07-24 12:55 | Outpatient (AMB) | payer MEDICARE, SELFPAY ==
--- NOTE | 2025-07-24 12:59 | A.OFFVIS_ITS ---
Intake Visit Reasons: Right Knee Durolane Injection Intake Note: Manisha is a 74 year old female who presents today for a right Knee Durolane Injection Allergies No Known Allergies Allergy (Verified 05/22/25 14:15) HPI HPI Right Knee Durolane Injection: Details: Manisha is a 74 year old female who presents today for a right Knee Durolane Injection. Of note she had a left knee replacement almost 3 months ago and this was complicated by a postoperative footdrop. He has started to get some motion back and has been able to dorsiflex her toes and ankle against gravity. She continues to wear an AFO. [facility] Medical History Arthritis Sinus tachycardia Peripheral neuropathy Osteopenia Depression Diabetes Hypothyroid HTN (hypertension) Surgical History Hx of tonsillectomy H/O colonoscopy Hx of appendectomy Status post ORIF of fracture of ankle Social History Household Members: None Housing: House Are you a primary rn intensive care unit to a significant other at home: No Do you presently have visiting nurse or other home services: No Comment: pt A&Ox4, uses call lopez appropriately Patient Tobacco Use Status: Never used Tobacco service: No Current occupational status: retired Physical Exam Extrem Other: Right knee with tenderness to palpation mostly along the medial compartment. 5-125 degrees of motion. Stable to varus and valgus stress. Left knee with well-healed incision. 0-130 degrees of knee motion. Stable to varus and valgus stress. She is firing her tibialis anterior and able to dorsiflex her ankle weekly as well as pulse her toes. Office Procedures Joint Inj/Aspir; Non-Pain Clin Joint Injection/Drain Details: Injected Durolane. Site was prepped using aseptic technique. Patient tolerated the procedure well. Coding Procedure code (CPT) selection complete Assessment & Plan Assessment & Plan (1) Foot drop, left: Code(s): M21.372 - Foot drop, left foot Category: Medical Plan: Her left peroneal nerve seems to be functioning. She is still weak in dorsiflexion but it is definitely present she is encouraging. Continue physical therapy and continue AFO use. Follow up in 3 months. (2) Osteoarthritis of knees, bilateral: Code(s): M17.0 - Bilateral primary osteoarthritis of knee Category: Medical Plan: I injected Durolane into her right knee. No complciations. Will follow up in 3 months Orders: Orders XR knee LT 3V Today M25.562 - Pain in left knee Coding Level of Care Code Est Pt Level 2 (70209) Diagnoses Foot drop, left M21.372 Osteoarthritis of knees, bilateral M17.0
--- OUTSIDE RECORDS SUMMARY | 2025-07-24 16:06 | XMS_ITS | Clinical Summary ---
Author Organization [facility] Address [address] [facility] [address] [place] [address] Phone Care Team Providers Care Medical Director Name Role Phone Ramon Tyler MD Primary Care Provider [phone] Encounters Date Type Department Care Team Description 05/30/2025 Transcribe Orders Virtual Department [address] [place] [address] Laura Velazquez NP Asymptomatic menopausal state (Primary [...] [facility] Admitting Dept Virtual Department [address] [place] [address] 09/04/2025 9:00 AM EST Hospital Encounter [facility] Admitting Dept Virtual Department [address] [place] [address] Ramon Feliz MD [address] [address] 09/04/2025 9:00 AM EST - 09/04/2025 9:30 AM EST Surgery [facility]oscopy Admitting Dept Virtual Department [address] [place] [address] Ramon Feliz MD [address] [address] [email or web address] COLONOSCOPY Scheduled Procedures Name Priority Associated Diagnoses Date/Ti tx COLONOSCOPY Screening for colon cancer 09/04/2025 9:00 AM EST Medical Devices Not on file Insurance MEDICARE PART A & B Member Subscriber Plan / Payer (Ef fective 2013-Present) Name:Manisha Srera Member ID:[id number] Relation to Subscriber:Self Name:Manisha Serra Subscriber ID:[id number] Payer ID:[id number] Group ID:Not on file Type:Medicare Address: [facility] [employer] [facility] [address] [place] [address], [place] [address] [employer] SUPPLEMENT MEDICARE PART A & B [employer] SU[employer] MEDICARE PART A & B [employer] SUPPLEMENT MEDICARE PART A & B [facility] MEDEX SUPPLEMENT MEDICARE PART A & B [employer] SU[employer] MEDICARE PART A & B [employer] SU[employer]MENT MEDICARE PART A & B [employer] SUPPLEMENT MEDICARE PART A & B [employer] SU[employer] MEDICARE PART A & B [employer] SU[employer]MENT Care Teams Medical Director Relationship Specialty Start Date End Date Ramon Tyler MD [email or web address] PCP - General Internal Medicine 01/05/18 Additional Source Comments The information contained in this document represents components of the legal health record. It is not the complete legal health record.[facility]
--- OUTSIDE RECORDS SUMMARY | 2025-07-24 16:06 | XMS_ITS | Encounter Summary ---
Author Organization [facility] Address [address] [facility] [address] [place] [address] Phone Care Team Providers Care Retail Seasonal Specialist Name Role Phone Ramon Tyler MD Primary Care Provider Encounter Details Date Type Department Care Team (Late st Contact Info) Description 06/02/2020 Procedure Pass [facility], [address] [address] Social History Tobacco Use Types Packs/Day Years [...] Pass [facility] Endoscopy Admitting Dept Virtual Department [address] [place] [address] 09/04/2025 9:00 AM EST Hospital Encounter [facility] Admitting Dept Virtual Department [address] [place] [address] Ramon Feliz MD [address] [place] [address] 09/04/2025 9:00 AM EST - 09/04/2025 9:30 AM EST Surgery [facility] Endoscopy Admitting Dept Virtual Department [address] [place] [address] Ramon Feliz MD [address] [place] [address] [email or web address] COLONOSCOPY Scheduled Procedures Name Priority Associated Diagnoses Date/Ti nj COLONOSCOPY Screening for colon cancer 09/04/2025 9:00 AM EST documented as of this encounter Visit Diagnoses Not on filedocumented in this encounter Care Teams Retail Seasonal Specialist Relationship Specialty Start Date End Date Ramon Tyler MD [email or web address] PCP - General Internal Medicine 01/05/18 documented as of this encounter Additional Source Comments The information contained in this document represents components of the legal health record. It is not the complete legal health record.[facility]
--- OUTSIDE RECORDS SUMMARY | 2025-07-24 16:06 | XMS_ITS | Encounter Summary ---
Author Organization [facility] Address [address] [facility] [address] [place] [address] Phone Care Team Providers Care Chip Drier Name Role Phone Ramon Tyler MD Primary Care Provider [phone] Encounter Details Date Type Department Care Team (Latest Contact Info) Description 05/30/2025 Transcribe Orders Virtual Department [address] [place] [address] Laura Velazquez NP [address] [place] [address] Asymptomatic menopausal state (Primary Dx) [...] Pass [facility] Endoscopy Admitting Dept Virtual Department [address] [place] [address] 09/04/2025 9:00 AM EST Hospital Encounter [facility] Endoscopy Admitting Dept Virtual Department [address] [place] [address] Ramon Feliz MD [address] [address] 09/04/2025 9:00 AM EST - 09/04/2025 9:30 AM EST Surgery [facility] Endoscopy Admitting Dept Virtual Department [address] [place] [address] Ramon Feliz MD [address] [address] [email or web address] COLONOSCOPY Scheduled Procedures Name Priority Associated Diagnoses Date/Ti or COLONOSCOPY Screening for colon cancer 09/04/2025 9:00 AM EST documented as of this encounter Visit Diagnoses Diagnosis Asymptomatic menopausal state- Primary Screening for colon cancer Special screening for malignant neoplasms, colon documented in this encounter Care Teams Chip Drier Relationship Specialty Start Date End Date Ramon Tyler MD [email or web address] PCP - General Internal Medicine 01/05/18 documented as of this encounter Additional Source Comments The information contained in this document represents components of the legal health record. It is not the complete legal health record.[facility]
--- OUTSIDE RECORDS SUMMARY | 2025-07-24 16:06 | XMS_ITS | Encounter Summary ---
Author Organization [facility] Address [address] [facility] [address] [place] [address] Phone Care Team Providers Care Obstetrician And Gynaecologist Name Role Phone Kadeem Tyler MD Primary Care Provider [phone] Encounter Details Date Type Department Care Team (Late Contact Info) Description 01/05/2018 Ancillary Orders Virtual Department [address] [place] [address] Klarissa Mcbride MD [address] [place], [place] Breast screening Social History Tobacco Use [...] Pass [facility] Endoscopy Admitting Dept Virtual Department [address] [place] [address] 09/04/2025 9:00 AM EST Hospital Encounter [facility]oscopy Admitting Dept Virtual Department [address] [place] [address] Kadeem Feliz MD [address] [place] [address] 09/04/2025 9:00 AM EST - 09/04/2025 9:30 AM EST Surgery [facility] Endoscopy Admitting Dept Virtual Department [address] [place] [address] Kadeem Feliz MD [address] [place] [address] [email or web address] COLONOSCOPY Scheduled Procedures Name Priority Associated Diagnoses Date/Ti wv COLONOSCOPY Screening for colon cancer 09/04/2025 9:00 [...] tissue is almost entirely fat. POS - [id number] Narrative 02/15/2018 8:49 AM EDT Standard digital [...] and compared with multiple prior studies, most [id number]/11/2015, with utilization of computer-aided detection. The breasts [...] tissue is almost entirely fat. POS - [id number] Klarissa Mcbride MD IMG MG EXAMS Joanne l Result documented in this encounter Visit Diagnoses Diagnosis Breast screening Breast screening, unspecified Breast screening Breast screening, unspecified Screening for colon cancer Special screening for malignant neoplasms, colon documented in this encounter Care Teams Obstetrician And Gynaecologist Relationship Specialty Start Date End Date Kadeem Tyler MD [email or web address] PCP - General Internal Medicine 01/05/18 documented as of this encounter Additional Source Comments The information contained in this document represents components of the legal health record. It is not the complete legal health record.[facility]
== END 2025-07-24 13:43 | disposition home or self-care (01) ==
PROVIDERS: Visit Provider Orthopaedic Surgery
DX: M21.372 Foot drop, left foot (principal); M17.0 Bilateral primary osteoarthritis of knee
CPT/HCPCS: 20610

== ENCOUNTER → 2025-07-24 13:08 | Outpatient (BNV) | payer MEDICARE, SELFPAY | PROVIDERS: Visit Provider Radiology Diagnostic Radiology | DX: M25.562 Pain in left knee (principal) | CPT/HCPCS: 73562 ==

== ENCOUNTER 2025-07-31 14:02 | Outpatient (RCR) | payer MEDICARE, SELFPAY | END 2025-08-05 09:00 | disposition home or self-care (01) | LOC: HO.PT 14:02 | PROVIDERS: PCP Nurse Practitioner Family; Visit Provider Physician Assistant | DX: Z96.652 Presence of left artificial knee joint (principal) | CPT/HCPCS: 97110; 97112; 97161; 97530; 97535 ==